=== PATIENT | female | born 1980 ===

== ENCOUNTER 2017-06-07 04:03 | Emergency (ER) | payer MEDICAID ==
[2017-06-07 04:21] VITALS: RESP 20; TEMP 98.8
[2017-06-07] MEDS ORDERED: Lidocaine 5% Patch TD STA (05:10)
[2017-06-07] MEDS ORDERED: Dexamethasone 4 mg/1 ml IM STA (05:11)
[2017-06-07] MEDS ORDERED: Dexamethasone 4 mg/1 ml ONE (05:26)
[2017-06-07] MEDS ORDERED: Lidocaine 5% Patch TD ONE (05:27)
[2017-06-07 05:38] VITALS: BP 101/60; PULSE 62; O2SAT 100
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
== END 2017-06-07 06:29 | disposition home or self-care (01) ==
LOC: C.ER 04:03
DX: S33.5XXA Sprain of ligaments of lumbar spine, initial encounter (principal); X58.XXXA Exposure to other specified factors, initial encounter; H10.9 Unspecified conjunctivitis
CPT/HCPCS: 96372; 99283; J1100; J1885